=== PATIENT | male | born 1980 ===

== ENCOUNTER 2017-02-12 17:26 | Observation (INO) | payer SELFPAY ==
[2017-02-12 17:47] LABS: URINE BILIRUBIN NEGATIVE (NEGATIVE); URINE BLOOD NEGATIVE (NEGATIVE); URINE COLOR Colorless (YELLOW); URINE GLUCOSE (UA) NORMAL (Normal); URINE KETONE NEGATIVE (NEGATIVE); URINE LEUKOCYTE ESTERASE NEG Leu/uL (Negative); URINE PROTEIN NEGATIVE (NEGATIVE); URINE UROBILINOGEN NORMAL mg/dL (0.2-1.0)
[2017-02-12 18:33] LABS: BASO % 0.6 % (0.0-2.0); EOS # 0.1 K/uL (0.0-0.7); EOS % 1.4 % (0.0-4.0); HEMATOCRIT 41.7 % (35.0-51.0); LYMPH # 1.3 K/uL (1.0-4.3); LYMPH % 19.4 % (20.0-40.0); MEAN CELL VOLUME 101.2 fL (80.0-94.0); MEAN CORPUSCULAR HEMOGLOBIN 34.1 pg (27.0-31.0); MEAN CORPUSCULAR HGB CONC 33.7 g/dL (33.0-37.0); MEAN PLATELET VOLUME 8.6 fL (7.2-11.7); MONO # 0.5 K/uL (0.0-0.8); RED CELL DISTRIBUTION WIDTH 15.7 % (11.5-14.5); WHITE BLOOD COUNT 6.8 K/uL (4.8-10.8)
[2017-02-12 18:41] LABS: CHLORIDE 108 mmol/L (98-107); SODIUM 145 mmol/L (132-148)
[2017-02-12 18:42] LABS: POTASSIUM 3.7 mmol/L (3.6-5.2)
[2017-02-12 18:44] LABS: ALB/GLOB RATIO 1.3 (1.0-2.1); ALKALINE PHOSPHATASE 66 U/L (38-126); AST/SGOT 29 U/L (17-59); BILIRUBIN,TOTAL 0.5 mg/dL (0.2-1.3); BLOOD UREA NITROGEN 9 mg/dL (9-20); CARBON DIOXIDE 22 mmol/L (22-30); GFR AFRICAN-AMERICAN > 60; GLUCOSE,RANDOM 114 mg/dL (75-110); TOTAL PROTEIN 7.5 g/dL (6.3-8.3)
[2017-02-12 18:45] LABS: ALT/SGPT 29 U/L (21-72); CALCIUM 8.3 mg/dl (8.6-10.4)
[2017-02-12 19:04] LABS: ALCOHOL SERUM 402 mg/dl (0-10)
[2017-02-12 20:01] VITALS: RESP 16
--- NOTE | 2017-02-12 20:48 | C.PDOC ---
History Of Present Illness Pt was BIBEMS due to public intoxication and agitation. Time Seen by Provider: 02/12/17 17:36 Chief Complaint (Nursing): Substance Abuse History Per: Patient, EMS History/Exam Limitations: intoxication Onset/Duration Of Symptoms: Unknown (today) Current Symptoms Are (Timing): Still Present Modifying Factor(s): Alcohol, Marijuana Severity: Severe Associated Symptoms: Agitation Additional History Per: Prior Records Past Medical History Reviewed: Historical Data, Nursing Documentation, Vital Signs Vital Signs: Last Vital Signs Temp 97.6 F 02/12/17 20:42 Pulse 75 02/12/17 20:42 Resp 16 02/12/17 20:42 BP 103/44 L 02/12/17 20:42 Pulse Ox 98 02/12/17 21:10 - Medical History Other PMH: Unknown Family History: States: Unknown Family Hx - Social History Hx Alcohol Use: Yes Hx Substance Use: Yes Review Of Systems Review Of Systems: ROS cannot be obtained secondary to pt's inabilty to answer questions. Physical Exam - Physical Exam Appears: Combative, Agitated, Other (AOB, intoxicated) Skin: Normal Color, Warm, Dry Head: Atraumatic Eye(s): bilateral: PERRL Neck: Normal ROM, No Step Off Deformity, Supple Chest: Symmetrical, No Deformity Cardiovascular: Rhythm Regular Respiratory: Normal Breath Sounds, No Accessory Muscle Use Gastrointestinal/Abdominal: Soft Extremity: Normal ROM, No Deformity Neurological/Psych: Inappropriate Response To Command, Other (Moving all extremities) Gait: Unable To Assess ED Course And Treatment - Laboratory Results Result Diagrams: 02/12/17 18:28 02/12/17 18:28 Lab Interpretation: Abnormal Interpretation Of Abnormal: Elevated alcohol level O2 Sat by Pulse Oximetry: 98 Pulse Ox Interpretation: Normal ED OBSERVATION Date of observation admission: 02/12/17 Time of observation admission: 18:00 - Observation admission statement Patient is being placed in observation because:: Alcohol intoxication s/p sedation. - Goals of Observation Goals of observation are:: Sobriety. Re-evaluation of behavior when sedation wears off. - Progress Note Progress Note: Pt was extremely agitated and combative. Pt had to be sedated for his and everyone else's safety. 02/13/17 00:52 Pt was checked every 2 hours and remained stable. He is sleeping, but arousable to painful stimuli. Disposition - Disposition Disposition Time: 01:00 Condition: STABLE - Clinical Impression Clinical Impression: Alcohol intoxication, Behavioral problem Physician Patient Turnover Patient Signed Over To: Terrence Zaragoza Handoff Comments: to reassess pt once sober and sedation wears off.
[2017-02-13 03:07] VITALS: BP 129/75; PULSE 86; TEMP 97.7; O2SAT 99
== END 2017-02-13 02:58 | disposition home or self-care (01) ==
LOC: C.ER 17:26 → EDBD 21:08 → C.9OBSV 21:08
PROVIDERS: ADMIT Emergency Medicine; ATTEND Emergency Medicine
DX: F10.120 Alcohol abuse with intoxication, uncomplicated (principal); F12.10 Cannabis abuse, uncomplicated; Y90.8 Blood alcohol level of 240 mg/100 ml or more
CPT/HCPCS: 80053; 81001; 85025; 96372; 99284; G0378; G0480; J1630; J2060